=== PATIENT | male | born 1975 ===

== ENCOUNTER 2020-02-20 01:46 | Emergency (ER) | payer SELFPAY ==
[2020-02-20] MEDS ORDERED: Sodium Chloride 0.9% 10 ML Syringe FLUSH PRN (01:49)
[2020-02-20] MEDS ORDERED: Sodium Chloride 0.9% 2.5 ML Syringe FLUSH PRN (01:49)
[2020-02-20] MEDS ORDERED: Ketorolac 15 MG/ML SDV IVPUSH ONE (01:49)
[2020-02-20] MEDS ORDERED: Sodium Chloride 0.9% 1,000 ML IV ONE (01:49)
[2020-02-20] MEDS ORDERED: Ondansetron 4 MG/2 ML SDV IVPUSH ONE (01:49)
--- NOTE | 2020-02-20 01:53 | EDM.PDOC ---
ED HPI GENERAL MEDICAL PROBLEM - General Chief Complaint: Abdominal Pain Stated Complaint: ABDOMINAL PAIN Time Seen by Provider: 02/20/20 01:49 - History of Present Illness INITIAL COMMENTS - FREE TEXT/NARRATIVE: History of present illness: 44-year-old male brought by EMS presenting with right lower quadrant abdominal pain ongoing for the last few hours. Possibly ate something greasy somewhat before the pain started. He has felt nauseated and vomited since the pain started. Pain starts in the low right lower quadrant and radiates up into the right flank. He does report similar pain in the past related to kidney stones but he was also concerned he may have appendicitis. Did take a medication from [id number] called "nauzene" just prior to arrival here. History of hypertension, MS, stents. Review of systems: As per history of present illness and below otherwise all systems reviewed and negative. Past medical history: As per history of present illness and as reviewed below otherwise noncontributory. Surgical history: As per history of present illness and as reviewed below otherwise noncontributory. Social history: No reported history of drug or alcohol abuse. Family history: As per history of present illness and as reviewed below otherwise noncontributory. Physical exam: GEN: no acute distress, well appearing HEENT: Atraumatic, normocephalic, mucous membranes moist, Neck: supple, nontender, trachea midline. Lungs: No respiratory distress. Heart: RRR Abdomen: Soft, nondistended, right lower quadrant tenderness, no right upper quadrant tenderness, negative Jacobs sign, no left-sided abdominal tenderness, no rebound or guarding. Back: nontender, no CVA tenderness Extremities: Atraumatic. Neurovascularly intact. Neuro: Awake, alert, oriented. Neuro Exam nonfocal. Skin: warm, dry, no lesions Diagnostics: [] Therapeutics: [] MDM: Impression: [] Plan: [] Definitive disposition and diagnosis as appropriate pending reevaluation and review of above. RLQ Pain Score (Numeric/FACES): 9 - Related Data Allergies Allergy/AdvReac Type Severity Reaction Status Date / Time Sulfa (Sulfonamide Allergy Rash Verified 02/20/20 01:53 Antibiotics) Home Meds: Home Meds Aspirin 1 tab PO DAILY 02/20/20 [History] Furosemide 20 mg PO DAILY 02/20/20 [History] Ibuprofen 600 mg PO Q8H #30 tablet 02/20/20 [Rx] Isosorbide Mononitrate [Isosorbide Mononitrate ER] 30 mg PO DAILY 02/20/20 [History] Spironolactone [Aldactone] 25 mg PO ASDIRECTED 02/20/20 [History] Tamsulosin [Tamsulosin 24 Hr] 0.4 mg PO DAILY #20 cap.er 02/20/20 [Rx] carvediloL [Carvedilol] 1.5 tab PO BID 02/20/20 [History] ramipriL [Ramipril] 1 cap PO BID 02/20/20 [History] sitaGLIPtin Phos/Metformin HCl [Janumet Xr 100-1,000 mg Tablet] 100 mg PO DAILY 02/20/20 [History] ED ROS GENERAL - Review of Systems Review Of Systems: See Below (See HPI) ED EXAM, GI/ABD - Physical Exam Exam: See Below (See HPI) Course - Vital Signs Text/Narrative:: Lower quadrant abdominal pain, ongoing for several hours associated with nausea. No fevers or chills. Prior history of kidney stones with similar type pain, however given that his lower right lower quadrant concern for possible appendicitis as well. Will check CT scan and lab/UA. Pain medications and antiemetics also ordered. Labs with normal white count but creatinine elevated. No prior creatinine available in the system but patient reports no prior history of renal insufficiency. CT scan shows large renal stone with hydronephrosis at the proximal ureter, 5 cm from the UPJ. Second stone in the renal pelvis. Discussed with patient recommendation for admission with the patient for urologic evaluation, consultation and stone removal. The patient voiced understanding of my recommendation, however is unable to stay in the hospital at this time, but agrees to return after he takes care of several things he must do today. Case was discussed with urology, as well as the fact that the patient cannot stay for admission. Urology agrees to see the patient outpatient today at the office at 1 PM and agrees with plan for Flomax and Motrin for pain control. Last Recorded V/S: Last Vital Signs Temp 97.2 F 02/20/20 01:49 Pulse 74 02/20/20 05:00 Resp 16 02/20/20 05:00 BP 124/83 02/20/20 05:00 Pulse Ox 99 02/20/20 05:00 - Orders/Labs/Meds Orders: Active Orders 24 hr Category Date Time Status Saline Lock Insert [OM.PC] Stat Oth 02/20/20 01:49 Ordered Labs: Laboratory Tests 02/20/20 02/20/20 02/20/20 Range/Units 02:00 02:03 02:03 WBC 5.66 (4.0-11.0) K/uL RBC 5.03 (4.50-5.90) M/uL Hgb 14.5 (13.0-17.0) g/dL Hct 43.2 (38.0-50.0) % MCV 85.9 (80.0-98.0) fL MCH 28.8 (27.0-32.0) pg MCHC 33.6 (31.0-37.0) g/dL RDW Std Deviation 41.0 (28.0-62.0) fl RDW Coeff of Dio 13 (11.0-15.0) % Plt Count 169 (150-400) K/uL MPV 9.40 (7.40-12.00) fL Neut % (Auto) 56.3 (48.0-80.0) % Lymph % (Auto) 33.0 (16.0-40.0) % [place] % (Auto) 6.4 (0.0-15.0) % Eos % (Auto) 3.9 (0.0-7.0) % Baso % (Auto) 0.4 (0.0-1.5) % Neut # (Auto) 3.2 (1.4-5.7) K/uL Lymph # (Auto) 1.9 (0.6-2.4) K/uL [place] # (Auto) 0.4 (0.0-0.8) K/uL Eos # (Auto) 0.2 (0.0-0.7) K/uL Baso # (Auto) 0.0 (0.0-0.1) K/uL Nucleated RBC % 0.0 /100WBC Nucleated RBCs # 0 K/uL Sodium 143 (136-148) mmol/L Potassium 3.7 (3.5-5.1) mmol/L Chloride 106 (98-107) mmol/L Carbon Dioxide 29.4 (21.0-32.0) mmol/L BUN 19 H (7.0-18.0) mg/dL Creatinine 1.8 H (0.8-1.3) mg/dL Est Cr Clr Drug Dosing TNP Estimated GFR (MDRD) 40.8 ml/min Glucose 162 H (74-106) mg/dL Calcium 8.8 (8.5-10.1) mg/dL Total Bilirubin 0.7 (0.2-1.0) mg/dL AST 22 (15-37) IU/L ALT 42 (14-63) IU/L Alkaline Phosphatase 73 (46-116) U/L Total Protein 6.8 (6.4-8.2) g/dL Albumin 3.9 (3.4-5.0) g/dL Globulin 2.9 (2.6-4.0) g/dL Albumin/Globulin Ratio 1.3 (0.9-1.6) Urine Color YELLOW Urine Appearance HAZY Urine pH 6.0 (5.0-8.0) Ur Specific [place] 1.025 (1.001-1.035) Urine Protein NEGATIVE (NEGATIVE) mg/dL Urine Glucose (UA) NEGATIVE (NEGATIVE) mg/dL Urine Ketones NEGATIVE (NEGATIVE) mg/dL Urine Occult Blood LARGE H (NEGATIVE) Urine Nitrite NEGATIVE (NEGATIVE) Urine Bilirubin NEGATIVE (NEGATIVE) Urine Urobilinogen 0.2 (<2.0) EU/dL Ur Leukocyte Esterase NEGATIVE (NEGATIVE) Urine RBC TOO NUMEROUS TO CT (0-2/HPF) Urine WBC 0-3 (0-5/HPF) Ur Epithelial Cells FEW (NONE-FEW) Urine Bacteria FEW (NEGATIVE) Urine Mucus LIGHT (NONE-MOD) Meds: Medications Discontinued Medications Generic Name Dose Route Start Last Admin Trade Name Freq PRN Reason Stop Dose Admin Sodium Chloride 1,000 mls @ 999 mls/hr 02/20/20 01:49 02/20/20 01:59 Normal Saline IV 02/20/20 02:49 999 mls/hr .Bolus ONE Administration Iopamidol 50 ml 02/20/20 03:21 02/20/20 03:22 Isovue-370 (76%) IVPUSH 02/20/20 03:22 50 ml ONETIME STA Administration Ketorolac Tromethamine 15 mg 02/20/20 01:49 02/20/20 01:59 Toradol IVPUSH 02/20/20 01:50 15 mg ONETIME ONE Administration Ondansetron HCl 4 mg 02/20/20 01:49 02/20/20 01:59 Zofran IVPUSH 02/20/20 01:50 4 mg ONETIME ONE Administration Sodium Chloride 10 ml 02/20/20 01:49 Saline Flush FLUSH ASDIRECTED PRN Keep Vein Open Sodium Chloride 2.5 ml 02/20/20 01:49 Saline Flush FLUSH ASDIRECTED PRN Keep Vein Open - Re-Assessments/Exams Free Text/Narrative Re-Assessment/Exam: 02/20/20 04:42 The patient is feeling much better. He was sleeping and comfortable on my reassessment. When I woke the patient up, he reported symptoms are much improved/pain is resolved and no nausea anymore. I discussed with the patient the lab and CT scan findings of enlarged kidney stone and elevated creatinine and my recommendation for admission to the hospital and urology consultation. The patient reports that he cannot stay. He needs to get some things done today but does agree to return to the ER later today to be admitted. I will also discuss his case with urology on-call. 02/20/20 04:48 Dr. Caputo, the urologist called back. We discussed the patient's case, and findings. He recommended that the patient follow-up in his office today at 1 PM and he will review his imaging and lab tests and determine plan of care. 02/20/20 05:01 I discussed with the patient the urology recommendations and the need to see him in the office at 1 PM as requested. The patient voiced understanding and agrees to do so. Departure - Departure Time of Disposition: 04:48 Disposition: Home, Self-Care 01 Clinical Impression: Urinary tract obstruction by kidney stone, Renal colic on right side, Renal insufficiency - Discharge Information Prescriptions: Tamsulosin [Tamsulosin 24 Hr] 0.4 mg PO DAILY #20 cap.er Ibuprofen 600 mg PO Q8H #30 tablet Instructions: Renal Colic, [id number], Kidney Stones, [id number], Nausea and Vomiting, Adult, [id number], Abdominal Pain, Adult, [id number] Referrals: PCP,None [Primary Care Provider] - Makayla Weber MD [Physician] - (Followup today at 1pm) Forms: ED Department Discharge Additional Instructions: The following information is given to patients seen in the emergency department who are being discharged to home. This information is to outline your options for follow-up care. We provide all patients seen in our emergency department with a follow-up referral. The need for follow-up, as well as the timing and circumstances, are variable depending upon the specifics of your emergency department visit. If you don't have a primary care physician on staff, we will provide you with a referral. We always advise you to contact your personal physician following an emergency department visit to inform them of the circumstance of the visit and for follow-up with them and/or the need for any referrals to a consulting specialist. The emergency department will also refer you to a specialist when appropriate. This referral assures that you have the opportunity for follow-up care with a specialist. All of these measure are taken in an effort to provide you with optimal care, which includes your follow-up. Under all circumstances we always encourage you to contact your private physician who remains a resource for coordinating your care. When calling for follow-up care, please make the office aware that this follow-up is from your recent emergency room visit. If for any reason you are refused follow-up, please contact the [facility] Emergency Department at and asked to speak to the emergency department charge nurse. [facility] [address] [place] [address] [address] Sepsis Event Note (ED) - Focused Exam Vital Signs: Vital Signs Temp Pulse Resp BP Pulse Ox 02/20/20 05:00 74 16 124/83 99 02/20/20 01:49 97.2 F 97 18 115/84 98 - My Orders Last 24 Hours: My Active Orders 02/20/20 01:49 Saline Lock Insert [OM.PC] Stat - Assessment/Plan Last 24 Hours: My Active Orders 02/20/20 01:49 Saline Lock Insert [OM.PC] Stat
[2020-02-20 02:32] LABS: BLOOD UREA NITROGEN,BUN 19 mg/dL (7.0-18.0); CARBON DIOXIDE,CO2 29.4 mmol/L (21.0-32.0); CHLORIDE,CL 106 mmol/L (98-107); GLUCOSE RANDOM 162 mg/dL (74-106); POTASSIUM,K 3.7 mmol/L (3.5-5.1); SODIUM,NA 143 mmol/L (136-148)
[2020-02-20] MEDS ORDERED: Iopamidol 755 Mg/ML 100 ML Bottle IVPUSH STA (03:21)
--- NOTE | 2020-02-20 04:35 | CT ---
Indication: Right lower quadrant pain Technique: Contrast enhanced axial CT imaging through the abdomen and pelvis. 50 mL Isovue 370 contrast agent was administered intravenously. Sagittal and coronal reconstructions are provided. Comparison: None Findings: There is a 6 x 5 x 7 mm stone in the proximal right ureter, approximately 5 cm from the ureteropelvic junction. There is mild right hydronephrosis, perinephric edema, and delayed with enhancement consistent with degenerative structure. There is also a nonobstructing 9 mm stone in the right lower renal pole. No renal stones are seen on the left. The urinary bladder is unremarkable. There is no significant abnormality relating to the liver, gallbladder, spleen, pancreas, or adrenal glands. There is no abdominal lymphadenopathy. There is normal caliber of the abdominal aorta. The stomach and duodenum are unremarkable. There are no abnormally dilated small bowel loops. The appendix is noninflamed. There is no colonic wall thickening. No inflammatory changes are demonstrated in the mesentery. The osseous structures are unremarkable. The included lung bases are clear. Impression: 1. A 7 mm stone in the proximal right ureter resulting in urinary obstruction. 2. Additional 9 mm nonobstructing stone in the right lower renal pole. No left renal stones. Please note that all CT scans at this facility use dose modulation, iterative reconstruction, and/or weight-based dosing when appropriate to reduce radiation dose to as low as reasonably achievable. Dictated by Fidencio Holley MD @ Feb 20 2020 4:25AM Signed by Dr. Fidencio Holley @ Feb 20 2020 4:32AM
== END 2020-02-20 05:10 | disposition home or self-care (01) ==
LOC: MW.ED 01:46
DX: N13.9 Obstructive and reflux uropathy, unspecified (principal); N13.2 Hydronephrosis with renal and ureteral calculous obstruction; N28.9 Disorder of kidney and ureter, unspecified; Z88.2 Allergy status to sulfonamides; Z79.82 Long term (current) use of aspirin; Z79.899 Other long term (current) drug therapy
CPT/HCPCS: 36415; 74177; 80053; 81001; 85025; 96361; 96374; 96375; 99284; J1885; J2405; J7030; Q9967; 99283